=== PATIENT | male | born 1995 ===

== ENCOUNTER 2023-09-09 13:01 | Emergency (ER) | payer SELFPAY ==
[2023-09-09 13:25] LABS: BASOPHILS PERCENT AUTO 0.2 % (0.0-1.0); EOSINOPHILS PERCENT AUTO 2.2 % (1.0-3.0); HEMATOCRIT 42.8 % (40.0-54.0); HEMOGLOBIN 14.8 g/dL (14.0-18.0); LYMPHOCYTES PERCENT AUTO 52.7 % (20.5-50.1); MEAN CORPUSCULAR HEMOGLOBIN 31.8 pg (27.0-34.0); MEAN CORPUSCULAR HGB CONC 34.6 g/dL (33.0-35.0); MEAN CORPUSCULAR VOLUME 91.8 fL (80-100); MONOCYTES PERCENT AUTO 9.6 % (2-8); NEUTROPHILS PERCENT AUTO 35.3 % (42.2-75.2); PLATELET COUNT,PLT 368 10^3/uL (150-450); RED BLOOD CELL COUNT 4.66 10^6/uL (4.6-6.2); WHITE BLOOD CELL COUNT,WBC 8.2 10^3/uL (5.0-10.0)
[2023-09-09 13:41] LABS: PROTHROMBIN TIME 10.3 SEC (9.0-12.0)
[2023-09-09] MEDS: Tenecteplase 50 MG Kit IVPUSH ONE (13:43)
[2023-09-09] MEDS: Sodium Chloride 0.9% 10 ML Syringe FLUSH PRN (13:43)
[2023-09-09 13:45] LABS: A/G RATIO 1.2; ALBUMIN 4.2 g/dL (3.4-5.0); ANION GAP 11.6 mEq/L (7-13); BILIRUBIN TOTAL 0.3 mg/dL (0.2-1.0); BUN/CREATININE RATIO 13.2 (No establ ref range); CREATININE 0.91 mg/dL (0.70-1.30); EST CRCL DRUG DOSING (CG) 136.58 mL/min; POTASSIUM,K 3.6 mmol/L (3.5-5.1); PROTEIN TOTAL,TP 7.6 g/dL (6.4-8.2)
[2023-09-09] MEDS ORDERED: Sodium Chloride 0.9% 500 ML IV SCH (13:45)
[2023-09-09] MEDS: Ondansetron 4 MG in Sodium Chloride 0.9% 50 ML IV ONE (14:53)
[2023-09-09] MEDS: Ondansetron 4 MG/2 ML SDV IVPUSH ONE (14:53)
[2023-09-09] MEDS: Famotidine 20 MG/2 ML SDV IVPUSH ONE (16:07)
[2023-09-09] MEDS: Acetaminophen 325 MG Tab PO ONE (16:07)
[2023-09-09] MEDS ORDERED: Tenecteplase 50 MG Kit ONE (16:36)
== END 2023-09-09 17:21 ==
LOC: DL.ED 13:01
DX: I63.9 Cerebral infarction, unspecified (principal)
CPT/HCPCS: 36415; 37195; 70450; 71045; 80053; 82947; 84484; 85025; 85610; 85730; 93005; 93010; 96374; 96375; 99285; A9270; J2405; J3101; J3490